=== PATIENT | female | born 2005 | race Caucasian/White ===

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

== ENCOUNTER 2024-03-09 07:48 | Outpatient (RCR) | payer OTHER, SELFPAY ==
[2024-03-09 12:15] VITALS: BP 126/70; PULSE 114; TEMP 36.6; O2SAT 99
[2024-03-09] MEDS: RHO(D) IMMUNE GLOBULIN 1,500 UNIT SYRINGE 1500 UNIT IM (12:23)
--- NOTE | 2024-03-09 13:15 | PC.NURSE ---
1215: Pt. to [facility] amb. accompanied by mother. Seated in recliner. VSS. Blood type verified. Pt. given information about rhogam, questions addressed. Medicated with Rhophylac to right deltoid, see documentation. No bleeding to site, bandaid applied prophylctically. Pt. tolerated without c/o discomfort. 1240: Pt. without s&s adverse reaction. D/c'd amb.to home with mom.
== END 2024-03-09 14:30 | disposition home or self-care (01) ==
LOC: INF 07:48
PROVIDERS: Visit Provider Midwife
DX: O26.893 Other specified pregnancy related conditions, third trimester (principal); Z67.91 Unspecified blood type, Rh negative; Z3A.00 Weeks of gestation of pregnancy not specified
CPT/HCPCS: 36415; 86850; 86900; 86901; 96372; J2790

== ENCOUNTER 2024-05-01 14:05 | Observation (INO) | payer OTHER, SELFPAY ==
[2024-05-01 14:16] VITALS: BP 109/60; PULSE 81
== END 2024-05-01 14:55 | disposition home or self-care (01) ==
PROVIDERS: Admitting Provider Obstetrics & Gynecology; Visit Provider Obstetrics & Gynecology
DX: O36.8190 Decreased fetal movements, unspecified trimester, not applicable or unspecified (principal); Z3A.00 Weeks of gestation of pregnancy not specified
CPT/HCPCS: 59025; G0378; G0379

== ENCOUNTER 2024-05-06 05:52 | Inpatient (IN) | payer OTHER, SELFPAY ==
[2024-05-06] VITALS (52 sets, daily range): BP systolic 91–136; BP diastolic 50–103; PULSE 72–144; TEMP 36.1–36.6
--- OUTSIDE RECORDS SUMMARY | 2024-05-06 05:55 | XMS_ITS | CCD ---
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 Name Role Phone GUIDO ., HELIO Admitting Unavailable GUIDO ., HELIO Attending Unavailable [facility] Primary [facility] [place] Unava ilable MICHELLE ., DESTINEY LEAL Consulting Unavailabl e MAYTE ., TAE Consulting Unavailable GUIDO ., HELIO Admitting Unavailable GUIDO ., HELIO Attending Unavailable Unavailable Primary Care Provider Unavailabl e SERVICES, [facility] Unava ilable KESHA ERNST Attending Unavailable SERVICES, [facility] Unava ilable DARYL CERON Attending Unavaila ble SERVICES, [facility] Unava ilable MARIANA MARIE Attending Unavailable MARIANA MARIE Attending Unavailable MARIANA MARIE Referring Unavailable SERVICES, [facility] Unava ilable SERVICES, [facility] Unava ilable Medications Current Medications Medication Drug Class(es) Dates Sig (Normalized) Sig (Original) ondansetron 8 mg oral tablet (2 sources) Serotonin-3 Receptor Antagonist Start: 11-08-2023 End: 12-08-2023 take 1 tablet by mouth every eight hours for nausea ondansetron (Zofran) 8 MG tablet Indications: Nausea and vomiting, unspecified vomiting type Take 1 tablet (8 mg) by mouth every 8 (eight) hours if needed for nausea 20 tablet 1 11/08/2023 12/08/2023 Active Vit-Fe Fumarate-FA ( Plus/Iron) 27-1 MG tablet (2 sources) Start: 10-15-2023 End: 10-14-2024 take 1 tablet by mouth in the morning Vit-Fe Fumarate-FA ( Plus/Iron) 27-1 MG tablet Indications: Amenorrhea Take 1 tablet by mouth in the morning. 30 tablet 0 10/15/2023 10/14/2024 Active Problems Active Problems Problem Classification Problem Date Documented Da te Episodic/Chronic Abdominal pain (4 sources) Pelvic and perineal pain; Translations: [Flank pain] Onset: 01-24-2023 Episodic Genitourinary symptoms and ill-defined conditions (1 source) Frequency of micturition; Translations: [Frequency of micturition] Onset: 10-03-2023 Episodic Inflammatory diseases of female pelvic organs (1 source) Acute vulvitis; Translations: [ACUTE VULVITIS] Onset: 01-28-2023 Episodic Nausea and vomiting (2 sources) Nausea with vomiting, unspecified; Translations: [Vomiting] Onset: 10-03-2023 Episodic Open wounds of extremities (2 sources) Laceration without foreign body of right thumb without damage to nail, initial encounter; Translations: [Laceration of finger] Onset: 11-13-2023 Episodic Other aftercare (1 source) Encounter for removal of sutures; Translations: [Encounter for removal of sutures] Onset: 11-22-2023 Episodic Other and delivery including normal (4 sources) Normal ; Translations: [Encounter for supervision of other normal , second trimester] 11-12-2023 Episodic Residual codes; unclassified (1 source) Less than 8 weeks gestation of ; Translations: [Less than 8 weeks gestation of ] Onset: 10-03-2023 Episodic Unclassified (2 sources) OB Reminders Onset: 11-07-2023 11-07-2023 Unclassified (1 source) Suture / Staple Removal Onset: 11-22-2023 Unclassified (1 source) Urinary Frequency, Vomitting - Possible Onset: 10-03-2023 Urinary tract infections (1 source) Urinary tract infection, site not specified; Translations: [Urinary tract infection, site not specified] Onset: 10-03-2023 Episodic Past or Other Problems Problem Classification Problem Date Documented Da te Episodic/Chronic Fever of unknown origin (4 sources) Fever, unspecified; Translations: [FEVER UNSPECIFIED] Onset: 05-01-2022 Episodic Results Test Name Value Interpretation Reference Range Facil ity XR HAND RT MIN 3 VWSon 11-13 XR HAND RT MIN 3 VWS XR HAND RT MIN 3 VWS Clinical history: Possible foreign body. Right hand: 11/13/2023 COMPARISON: None FINDINGS: 3 views the hand were obtained. No focal osseous abnormalities evident. There is no radiopaque foreign body. Bone density is normal. IMPRESSION: No foreign body evident radiographically. Finalized by Jose Dougherty MD on 11/13/2023 9:54 AM Normal [facility] SARS/FLU A+B/RSV by NAAT/Mol ecularon 10-04-2023 SARS/FLU A+B/RSV by NAAT/Molecular FLU A PCR Negative (qualifier value) FLU B PCR Negative (qualifier value) RSV by PCR Negative (qualifier value) SARS CoV 2 Detected (qualifier value) NOTE The Xpert Xpress SARS-CoV-2/Flu/RSV Plus test is a rapid, multiplexed real-time RT-PCR test intended for the simultaneous qualitative detection and differentiation of SARS-CoV-2, influenza A, influenza B and respiratory syncytial virus (RSV) viral RNA from individuals suspected of respiratory viral infection consistent with COVID-19 by their healthcare provider. This test has not been validated in asymptomatic patients. The Xpert Xpress SARS-CoV-2 test is intended for use by qualified and trained operators who are performing tests using either [employer] or [employer] systems and is limited to laboratories that meet the CLIA requirements to perform high and moderate complexity tests. The Xpert Xpress SARS-CoV-2/Flu/RSV Plus is only for use under the Food and Drug Administration's Emergency Use Authorization. Results are for the simultaneous detection and differentiation of SARS-CoV-2, influenza A, influenza B and RSV nucleic acids in clinical specimens. SARS-CoV-2, influenza A, influenza B and RSV RNA identified by this test are generally detectable in upper respiratory samples during the acute phase of infection. Positive results are indicative of the presence of the identified virus, but do not rule out bacterial infection or co-infection with other pathogens not detected by this test. Clinical correlation with patient history and other diagnostic information is necessary to determine patient infection status. The agent detected may not be the definite cause of disease. Negative results do not preclude SARS-CoV-2, influenza A, influenza B and RSV infection and should not be used as the sole basis for treatment or other patient management decisions. Negative results must be combined with clinical observations, patient history and epidemiological information. An Invalid result may occur with specimen-associated inhibition unable to be resolved with specimen repeat. Fact Sheet for Healthcare Providers: https://www.fda.gov/m edia/347351/download Fact Sheet for Patients: https://www.fda.gov/m edia/838313/download [facility] Comment on above: Performed By: #### C OVFLR #### [facility] ([id number]) [address] [place] [address] CHLAMYDIA/GC PCR, Uon 2022 CHLAMYDIA/GC PCR, U SPECIMEN SOURCE CLEAN CATCH MIDSTREAM URINE CHLAMYDIA DNA(PCR) Negative (qualifier value) Chlamydia trachomatis not detected by nucleic acid amplification. This does not exclude the possibility of infection because results are dependent on adequate specimen collection. GONORRHOEAE DNA(PCR) Negative (qualifier value) Neisseria gonorrhoeae not detected by nucleic acid amplification. This does not exclude the possibility of infection because results are dependent on adequate specimen collection. Normal [facility] Comment on above: Performed By: #### C #### [facility] ([id number]) [address] [place] [address] [facility] ([id number]) [address] [place] [address], [address] [place] [address] URINE CULTUREon 10-03-2023 Bacteria identified Cx Nom (U) CULTURE RESULTS 10-50,000 ORGANISMS/mL NORMAL UROGENITAL SANTOS Normal [facility] Comment on above: Performed By: #### 6 30-4 #### [facility] ([id number]) [address] [place] [address], [address] [place] [address] URN MACROSCOPIC NURon 2022 BILIRUBIN FARHAD Small Abnormal NEG [facility] Comment on above: Performed By: #### N UM #### [facility] ([id number]) [address] [place] [address] BLOOD/HGB FARHAD Negative Normal NEG [facility] Comment on above: Performed By: #### N UM #### [facility] ([id number]) [address] [place] [address] GLUCOSE FARHAD Negative Normal NEG [facility] Comment on above: Performed By: #### N UM #### [facility] ([id number]) [address] [place] [address] KETONES FARHAD >=160 Abnormal NEG [facility] Comment on above: Performed By: #### N UM #### [facility] ([id number]) [address] [place] [address] LEUKOCYTE ESTERASE FARHAD Negative Normal NEG [facility] Comment on above: Performed By: #### N UM #### [facility] ([id number]) [address] [place] [address] NITRITE FARHAD Negative Normal NEG [facility] Comment on above: Performed By: #### N UM #### [facility] ([id number]) [address] [place] [address] PH FARHAD 8.5 Normal 5.0-8.5 [facility] Comment on above: Performed By: #### N UM #### [facility] ([id number]) [address] [place] [address] PROTEIN FARHAD >=300 Abnormal NEG [facility] Comment on above: Performed By: #### N UM #### [facility] ([id number]) [address] [place] [address] SPECIFIC GRAVITY FARHAD 1.020 Normal 1.003-1.035 [facility] Comment on above: Performed By: #### N UM #### [facility] ([id number]) [address] [place] [address]52 UROBILINOGEN FARHAD 1.0 eu/dL Normal <1.1 [facility] Comment on above: Performed By: #### N UM #### [facility] ([id number]) [address] [place], [place] [address], [place] [address] Vital Signs Date Time Vital Sign Value Performing Clinician Dang del rio 11-12-2023 11:43-0500 Body mass index (BMI) [Ratio] 22.4 kg/m2 Jessica Sloan CNM Work Phone: [facility] 11-12-2023 11:43-0500 Body weight 64.86 kg Jessica Monzono CNM Work Phone: [facility] Healthcare 11-12-2023 11:43-0500 Diastolic blood pressure 70 mm[Hg] Jessica Monzono CNM Work Phone: [facility] 11-12-2023 11:43-0500 Systolic blood pressure 110 mm[Hg] Jessica Monzono CNM Work Phone: [facility] Healthcare Encounters Encounter Date Encounter Type Care Provider Facility Start: 11-22-2023 End: 11-22-2023 Emergency department patient visit [facility] Start: 11-13-2023 End: 11-14-2023 Emergency department patient visit MARIANA Cummings [facility] Start: 11-12-2023 End: 11-12-2023 Office outpatient visit 15 minutes Jessica Sloan CNM Work Phone: [facility] Comment on above: Encounter for superv ision of other normal , second trimester (Primary Dx); Supervision of normal first teen in second trimester Start: 10-04-2023 End: 10-04-2023 Emergency department patient visit [facility] Start: 10-03-2023 End: 10-03-2023 Emergency department patient visit [facility] Start: 01-24-2023 End: 01-24-2023 ambulatory HELIO LORA . Facility:[facility] Start: 05-01-2022 End: 05-01-2022 ambulatory T[facility] . Facility: Plan of Treatment Date Care Activity Detail Author Start: 12-10-2023 End: 12-10-2023 Patient encounter procedure 12/10/2023 11:00 AM EST Routine [facility] [address] [place] [id number] Jessica Sloan Emiliano, CNM [address], [place] [id number] [facility] Payers Date Payer Category Payer Medicaid [facility] MEDICAID [place] [id number] 2023-Present [address] [place] [address] [id number] 2004 Unknown [id number] 2004 Unknown [id number] 2004 Unknown [id number] 2004 Unknown [id number] 2004 Unknown [id number] 1969 Unknown [id number] 1969 Unknown [id number] 1959 Unknown [id number] Social History Date Type Detail Facility [facility]: [facility] Start: 10-15-2023 Tobacco use and exposure Smokeless t obacco non-user [facility] Start: 10-15-2023 Alcohol intake Lifetime non-d yony (finding) [facility] Start: 10-15-2023 History of Social function [facility] Start: 10-15-2023 Tobacco use panel [facility] Start: 08-20-2023 [facility] Start: 2004 Sex Assigned At Female [facility] Start: 10-08-2023 Gender identity Identifies as female gender (finding) [facility] Goals Date Patient Goal Desired Activity /State Personal health goal History of Present illness Narrative 11-12-2023 Jessica Sloan CNM - 11/12/2023 11:30 AM EST Note Date & Type Note Facility 11-12-2023 History of Presen t illness Narrative Subjective No chief complaint on file. Shayy Acevedo is a 18 y.o. at 14w0d with a working estimated date of delivery of 05/12/2024, by Ultrasound who presents for a routine visit. She denies vaginal bleeding, leakage of fluid, decreased movements, or contractions. Her is complicated by: teen , nausea and vomiting in The following portions of the chart were reviewed this encounter and updated as appropriate: Objective Physical Exam weight: 143 lb Expected Total Weight Gain: 25 lb-35 lb Pregravid BMI: 22.71 Urine glucose-negative,protein-negative Labs- reviewed Imaging Assessment/Plan Diagnoses and all orders for this visit: Encounter for supervision of other normal , second trimester Supervision of normal first teen in second trimester Continue vitamin. Labs reviewed. Rhogam GTT . Follow up in 2 weeks for a routine visit. documented in this encounter [facility] Evaluation note Note Date & Type Note Facility Evaluation note Diagnosis Encounter for supervision of other normal , second trimester- Primary Supervision of normal first teen in second trimester documented in this encounter [facility] Summary Purpose Family History No Family History Records FoundNo Family History Records Found Advance Directives No Advanced Directives Records FoundNo Advanced Directives Records Found Additional Source Comments INFORMATION SOURCE (unrecogn ized section and content) DATE CREATED AUTHOR 01/28/2023 [employer] DATE CREATED AUTHOR 'S ORGANIZ ATRENATO 11/24/2023 [facility] FOR RECORDS PERTAINING TO PATIENTS WHO ARE OR HAVE BEEN ENROLLED IN A CHEMICAL DEPENDENCY/SUBSTANCEABUSE PROGRAM, SOME INFORMATION MAY BE OMITTED. This clinical summary was aggregated from multiple sources. Caution should be exercised in using it in the provision of clinical care. This summary normalizes information from multiple sources, and as a consequence, information in this document may materially change the coding, format and clinical context of patient data. In addition, data may be omitted in some cases. CLINICAL DECISIONS SHOULD BE BASED ON THE PRIMARY CLINICAL RECORDS. [facility] [employer] [facility]. provides no warranty or guarantee of the accuracy or completeness of information in this document.
[2024-05-06 06:30] LABS: Hematocrit 31.2 % (36.0-48.0); Hemoglobin 10.7 g/dL (12.0-16.0); Mean Corpuscular HGB Conc 34.3 g/dL (29.9-35.2); Mean Corpuscular Hemoglobin 31.2 pg (26.7-34.0); Mean Platelet Volume 10.2 fL (9.5-13.5); Platelet Count 216 10^3/uL (150-450); Red Blood Count 3.43 10^6/uL (4.20-5.40); Red Cell Distribution Width 12.8 % (11.0-15.0); White Blood Count 9.7 10^3/uL (4.0-11.0)
[2024-05-06] MEDS: LACTATED RINGER'S SOLUTION 1,000 ML 125 ML IV ×3 (06:30→18:38)
[2024-05-06 06:41] LABS: Amphetamine Screen Urine NEGATIVE (NEGATIVE); Barbiturates Screen Urine NEGATIVE (NEGATIVE); Benzodiazepines Screen Urine NEGATIVE (NEGATIVE); Buprenorphine Screen Urine NEGATIVE (NEGATIVE); Cannabinoid Screen Urine POSITIVE (NEGATIVE); Cocaine Screen Urine NEGATIVE (NEGATIVE); Methadone Screen Urine NEGATIVE (NEGATIVE); Methamphetamines Screen Urine NEGATIVE (NEGATIVE); Opiate Screen Urine NEGATIVE (NEGATIVE); Oxycodone Screen Urine NEGATIVE (NEGATIVE); Phencyclidine Screen Urine NEGATIVE (NEGATIVE); Tricyclic Antidepressant Urine NEGATIVE (NEGATIVE)
--- NOTE | 2024-05-06 07:14 | PC.NURSE ---
This RN has reviewed all charting by Jae Hernandez RN and agrees with documentation.
[2024-05-06] MEDS: OXYTOCIN/0.9 % SODIUM CHLORIDE 10 UNITS/500 ML PLAST..BAG 6 UNIT IV (07:59)
[2024-05-06] MEDS: NALBUPHINE HCL 10 MG/ML AMPULE IV (14:14)
[2024-05-06] MEDS: ROPIVACAINE HCL/PF 400 MG/200 ML PREMIX 6 MG EPIDURAL (14:43)
--- NOTE | 2024-05-06 14:46 | PM.OBHP ---
OB - H&P: HPI History of Present Illness Chief complaint: INDUCTION : 1 Para: 0 Gestational age based on last menstrual period: 39.1 History of Present Dating criteria: based on 1st trimester US only care: good care Ultrasounds: normal 1st trimester US and normal mid trimester US complications: gestational diabetes (diet controlled ) Labs Blood type: 0 (-) negative Rubella: immune RPR/VDLR: nonreactive GBS status: negative HBsAG: negative Review of Systems ROS Status of ROS: 10 or more systems reviewed and unremarkable except as noted in history and below PFSH PFSH Social History Smoking status: Never smoker Meds Home Medications and Allergies Home Medications ?Medication ?Instructions ?Recorded ?Confirmed ?Type No Known Home Medications 08/13/23 05/06/24 History Allergies Allergy/AdvReac Type Severity Reaction Status Date / Time No Known Drug Allergies Allergy Verified 08/13/23 11:31 Exam Constitutional Vital Signs, click to edit/add: Last Vital Signs Temp 97.1 F L 05/06/24 14:46 Pulse 86 05/06/24 14:43 Resp 16 05/06/24 06:50 BP 114/67 05/06/24 14:43 Common normals: no apparent distress and oriented x3 General appearance: cooperative and comfortable Orientation/consciousness: Yes awake, Yes oriented to person, Yes oriented to place and Yes oriented to time HENMT Common normals: normocephalic Eye Common normals: EOMs intact bilaterally General eye: normal appearance of both eyes Neck & C-Spine Common normals: no lymphadenopathy Lymph Lymphatic: no lymphadenopathy noted Respiratory Common normals: normal respiratory effort and no use of accessory muscles Effort & inspection: able to speak in complete sentences Auscultation: clear to auscultation bilaterally Cardio Common normals: regular rate and regular rhythm Rate: regular rate Rhythm: regular rhythm GI Common normals: Normal to inspection, nondistended, normoactive bowel sounds present Auscultation: normoactive bowel sounds Palpation: soft Common normals: no CVA tenderness Back & Pelvis Common normals: no CVA tenderness Extremity Common normals: normal to inspection Neuro Common normals: oriented x3 Sensorium/orientation: awake, alert, oriented to person, oriented to place and oriented to time Psych Attitude: calm Thought process: normal thought process Results Labs Labs: Short CBC 07/31/24 Range/Units 06:15 WBC 9.7 (4.0-11.0) 10^3/uL Hgb 10.7 L (12.0-16.0) g/dL Hct 31.2 L (36.0-48.0) % Plt Count 216 (150-450) 10^3/uL OB - A/P Additional Plan Induction method: per pitocin protocol Plan: expectant management
[2024-05-06] MEDS: ONDANSETRON PF 4 MG/2 ML VIAL IV (15:08)
[2024-05-06] MEDS: LIDOCAINE VISCOUS 2% 15 ML SOLUTION 5 ML TOPICAL (21:00)
[2024-05-06] MEDS: OXYTOCIN/0.9 % SODIUM CHLORIDE 20 UNITS/1,000 ML PLAST..BAG 125 UNIT IV (21:01)
--- NOTE | 2024-05-06 21:08 | PM.OBPRCVD ---
Procedure Intrapartal events: None Induction method: per pitocin protocol Delivery augmentation: rupture of membranes Delivery monitor: external FHT and external uterine Route of delivery: Episiotomy Description: none L&D Laceration Description: periurethral - 2nd degree (yudelka clitoral laceration- Dr Wiley repaired ) Delivery repair: Vicryl Estimated blood loss (mL): 350 Anesthesia type: Epidural Disposition: no change Infant Delivery date: 05/06/24 Gender: female presentation: vertex cord description: 3 Vessels and Loose (x1 around chest, reduced with delivery ) heart rate - 1 minute: 100 bpm or Greater respiratory effort - 1 minute: Spontaneous/Strong Cry muscle tone - 1 minute: Active Movement reflex response - 1 minute: Prompt Response color - 1 minute: Bluish Hands or Feet total score - 1 minute: 9 heart rate - 5 minute: 100 bpm or Greater respiratory effort - 5 minute: Spontaneous/Strong Cry muscle tone - 5 minute: Active Movement reflex response - 5 minute: Prompt Response color - 5 minute: Bluish Hands or Feet total score - 5 minute: 9
[2024-05-06] MEDS: BENZOCAINE/MENTHOL 85 GRAM SPRAY BOTTLE 1 APPLIC TOPICAL (22:35)
[2024-05-06] MEDS: GLYCERIN/WITCH HAZEL PADS 1 PAD TOPICAL (22:35)
[2024-05-06] MEDS: IBUPROFEN 400 MG TABLET 800 MG PO (22:36)
[2024-05-07] VITALS (10 sets, daily range): BP systolic 106–123; BP diastolic 6–72; PULSE 70–93; TEMP 36.1–37.2
[2024-05-07] MEDS: IBUPROFEN 400 MG TABLET 800 MG PO ×2 (08:54→16:29)
[2024-05-07] MEDS: DOCUSATE SODIUM 100 MG CAPSULE PO (08:55)
--- NOTE | 2024-05-07 11:35 | SWNOTE1 ---
SW consulted due to positive THC on admission. Pt's mother was in room during assessment. Pt lives at home with her mother who is a good support for her. This is pt's first baby. She is determining paternity for baby at this time. She does have everything she needs at home for baby, just needs a breast pump. She is going to use a bassinet right now and the crib is in storage. Breast pump to be brought in to her later today. She voiced breast feeding is going well. Pt has good support at home with her family. She is going to contact [facility] once she is home. SW and pt spoke about signs of post depression and reaching out to support for help. SW did address the positive marijuana drug screen. Pt did admit to smoking marijuana here and there throughout due to discomfort, nausea, and to help her sleep. Pt does not plan on using once she returns home. Pt does not have a medical marijuana card. JR advised pt that SW is mandated medical scientist and will have to make a report to [facility] CPS. Pt and pt's mother voiced understanding and no further questions. HIPAA form sent to Maria Ines. JR called and made report to [facility] CPS.
--- NOTE | 2024-05-07 12:02 | PM.OBPN ---
OB - PN: Subj Subjective Patient comments: no complaints, pain well controlled and flatus present status: doing well [place] feeding status: exclusively Exam Narrative Exam Narrative: VOICING NO COMPLAINTS Constitutional Vital Signs, click to edit/add: Last Vital Signs Temp 97.9 F 05/07/24 08:50 Pulse 93 H 05/07/24 08:47 Resp 16 05/07/24 08:50 BP 111/68 05/07/24 08:47 O2 Del Method Room Air 05/07/24 08:50 Documenting provider has reviewed patient's vital signs: yes Common normals: no apparent distress, average body habitus, oriented x3, no limitations, healthy appearing and alert HENMT Common normals: normocephalic and head/scalp atraumatic Eye Pupil: PERRL and accommodation reflex normal Neck & C-Spine Common normals: full ROM and supple Chest Common normals: inspection of chest normal Respiratory Common normals: normal respiratory effort Cardio Common normals: regular rate and regular rhythm GI Common normals: Normal to inspection, nondistended, normoactive bowel sounds present, soft to palpation and non-tender Common normals: no CVA tenderness Back & Pelvis Common normals: no thoracic nor lumbar tenderness Extremity Common normals: normal to inspection, full ROM and no calf tenderness Neuro Common normals: oriented x3, CN's II-XII intact bilaterally, moves all extremities, no focal motor deficits and no sensory deficits noted Motor exam: strength 5/5 throughout Psych Common normals: mental status grossly normal, thought process normal, cooperative and affect normal OB - PN: A/P Assessment and Plan (1) (spontaneous vaginal delivery): Assessment and Plan: PPD ONE. CLINICAL EXAM NONFOCAL. PERINEUM INTACT. GOOD PAIN MANAGEMENT. BREAST FEEDING WELL. AMBULATING AND VOIDING NORMALLY. Plan ROUTINE CARE Time Spent with Patient Time: Total time spent is greater than 50% in coordination of care (as documented) at patient's floor/unit and/or counseling patient: Total time spent with greater than 50% in coordination of care (as documented) at patient's floor/unit and/or counseling patient: less than 15 minutes
[2024-05-07] MEDS: RHO(D) IMMUNE GLOBULIN 1,500 UNIT SYRINGE 1500 UNIT IM (18:08)
[2024-05-07 18:18] LABS: Basophils Absolute Auto 0.1 10^3/uL (0.0-0.1); Basophils Percent Auto 0.4 % (0.2-2.0); Eosinophils Absolute Auto 0.1 10^3/uL (0.0-0.7); Eosinophils Percent Auto 0.7 % (0.9-7.0); Hematocrit 28.4 % (36.0-48.0); Hemoglobin 9.6 g/dL (12.0-16.0); Immature Granulocytes Abs Auto 0.16 10^3/uL (0.00-0.03); Lymphocytes Percent Auto 24.7 % (20.5-60.0); Mean Corpuscular HGB Conc 33.8 g/dL (29.9-35.2); Mean Corpuscular Hemoglobin 31.1 pg (26.7-34.0); Mean Corpuscular Volume 91.9 fL (81.0-99.0); Monocytes Absolute Auto 0.9 10^3/uL (0.3-0.8); Monocytes Percent Auto 5.2 % (1.7-12.0); Neutrophils Absolute Auto 11.1 10^3/uL (1.4-6.5); Platelet Count 236 10^3/uL (150-450); Red Blood Count 3.09 10^6/uL (4.20-5.40); White Blood Count 16.3 10^3/uL (4.0-11.0)
--- NOTE | 2024-05-07 19:07 | W.PC.ACHO ---
Registration Status: ADM IN Primary Language: Chinese Preferred Language: Chinese Report given on tear, pain control, education needs & . Active Medications Generic Name Dose Route Start Last Admin Trade Name Freq PRN Reason Stop Dose Admin Acetaminophen 1,000 mg 05/06/24 08:06 Acetaminophen 500 Mg Tablet PO Q6H PRN Pain Acetaminophen 650 mg 05/06/24 21:32 Acetaminophen 325 Mg Tablet PO Q6H PRN Mild Pain Al Hydroxide/Mg Hydroxide 2,400 mg 05/06/24 21:32 Magnesium Hydroxide 2,400 Mg/10 Ml Oral.Susp PO Q6H PRN Dyspepsia Benzocaine/Menthol 1 applic 05/06/24 21:32 05/06/24 22:35 Benzocaine/Menthol 85 Gram Pinson Bottle TOPICAL 1 applic Q2H PRN Administration Pain Calcium Carbonate 500 mg 05/06/24 08:06 Calcium Carbonate 500 Mg (200mg Elemental) Tab Chew PO TID PRN Heartburn Carboprost Tromethamine 250 mcg 05/06/24 05:54 Carboprost Tromethamine 250 Mcg/Ml 1 Ml Vial IM 05/07/24 21:00 Q15M PRN Bleeding Diphtheria/Pertussis/Tetanus Vacc 0.5 ml 05/08/24 09:00 Adacel Diph,Pertuss(Acell),Tet Vac/Pf 0.5 Ml Adult Syringe IM 05/08/24 09:01 .ONCE ONE Docusate Sodium 100 mg 05/07/24 09:00 05/07/24 08:55 Docusate Sodium 100 Mg Capsule PO 100 mg BID YASMEEN Administration Tranexamic Acid 1,000 mg/ 110 mls @ 440 mls/hr 05/06/24 05:54 Sodium Chloride IV 05/07/24 21:00 ONCE PRN Uterine Bleeding Lactated Ringer's 1,000 mls @ 125 mls/hr 05/06/24 06:00 05/06/24 18:38 Lactated Ringers IV 125 mls/hr .Q8H YASMEEN Administration Ibuprofen 800 mg 05/06/24 21:45 05/07/24 16:29 Ibuprofen 400 Mg Tablet PO 800 mg Q8H YASMEEN Administration Measles/Mumps/Rubella Vaccine Live 0.5 ml 05/08/24 09:00 Measles,Mumps,Rubella Vacc/Pf 0.5 Ml Vial SQ 05/08/24 09:01 .ONCE ONE Methylergonovine Maleate 0.2 mg 05/06/24 05:54 Methylergonovine Maleate 0.2 Mg/Ml Ampule IM 05/07/24 21:00 ONCE PRN Uterine Contractility/Contract Methylergonovine Maleate 0.2 mg 05/06/24 05:54 Methylergonovine Maleate 0.2 Mg Tablet PO 05/07/24 21:00 Q4H PRN Uterine Contractility/Contract Misoprostol 600 mcg 05/06/24 05:54 Misoprostol 100 Mcg Tablet PO 05/07/24 21:00 ONCE PRN Uterine Bleeding Misoprostol 800 mcg 05/06/24 05:54 Misoprostol 100 Mcg Tablet SL 05/07/24 21:00 ONCE PRN Uterine Bleeding Misoprostol 1,000 mcg 05/06/24 05:54 Misoprostol [address] 05/07/24 21:00 ONCE PRN Uterine Bleeding Ondansetron HCl 4 mg 05/06/24 05:54 05/06/24 15:08 Ondansetron Pf 4 Mg/2 Ml Vial IV 4 mg Q6H PRN Administration Nausea And Vomiting Ondansetron HCl 4 mg 05/06/24 05:54 Ondansetron 4 Mg Rapdis Tablet SL Q6H PRN Nausea And Vomiting Oxytocin 10 unit 05/06/24 05:54 Oxytocin 10 Unit/Ml Vial IM 05/07/24 21:00 ONCE PRN Bleeding Senna 17.2 mg 05/06/24 20:00 Sennosides 8.6 Mg Tablet PO QHS PRN Constipation Simethicone 80 mg 05/06/24 21:32 Simethicone 80 Mg Tab.Chew PO QID PRN Abdominal Distention Temazepam 15 mg 05/06/24 21:32 Temazepam 15 Mg Capsule PO QHS PRN Sleep Witch She/Glycerin 1 pad 05/06/24 21:32 05/06/24 22:35 Glycerin/Witch She Pads TOPICAL 1 pad Q2H PRN Administration Pain Diet Category Date Time Status Regular Consistency Diet Diet 05/06/24 21:32 Active Respiratory Oxygen Delivery Method Room Air Oxygen Delivery Method Room Air Oxygen Delivery Method Room Air Oxygen Delivery Method Room Air Oxygen Delivery Method Room Air Cardiology Heart Sounds Strong,Regular Heart Sounds Strong,Regular Heart Sounds Strong,Regular Bowels Bowel Pattern No Bowel Movement Bowel Pattern No Bowel Movement Renal Bladder Pattern Continent Bladder Pattern Continent Bladder Pattern Continent Bladder Pattern Continent
[2024-05-08] MEDS: IBUPROFEN 400 MG TABLET 800 MG PO ×2 (03:36→12:01)
[2024-05-08] MEDS: GLYCERIN/WITCH HAZEL PADS 1 PAD TOPICAL (03:43)
[2024-05-08 08:18] VITALS: BP 110/67; PULSE 75
[2024-05-08] MEDS: DOCUSATE SODIUM 100 MG CAPSULE PO (08:19)
[2024-05-08 08:33] VITALS: BP 110/67; PULSE 75; TEMP 36.8
--- NOTE | 2024-05-08 12:11 | P.DS_ITS ---
DS: Providers Provider Date of admission: 05/06/24 05:52 Primary care physician: Non-Staff Physician, Admitting clinician: JONAH BANSAL Consults: 05/06/24 Consult to Anesthesiology Routine Consulting Provider: Carter Donovan Reason for consultation: Epidural Consult to Mica Plate Layer Hand Routine Reason for consult:: Other Other reason:: Positive THC Discharging clinician: Magdalena Wiley Anticipated date of discharge: 05/08/24 DS: Diagnosis Discharge Diagnosis (1) (spontaneous vaginal delivery): Assessment and plan: delivered without complication Plan discharge home, discharge instructions given with stated understanding OB - DS: Summary Hospital Course Hospital Course: uncomplicated Time spent discussing smoking cessation with patient: 3 to 10 minutes Peripartum Data - Vaginal Delivery Laceration description: perineal - 2nd degree (periclitoral repair without involvement of clitoris) Complications complications: none Delivery method: spontaneous vaginal delivery Gender: female Discharge plan: home Status at Discharge Cognitive/behavioral status at discharge: wnl Functional status at discharge: independent ambulation Time Spent with Patient Time attestation: Total time spent providing and/or coordinating discharge services: Time spent: less than 30 minutes Exam Narrative Exam Narrative: voicing no complaints Constitutional Vital Signs, click to edit/add: Last Vital Signs Temp 98.2 F 05/08/24 08:33 Pulse 75 05/08/24 08:33 Resp 16 05/08/24 08:33 BP 110/67 05/08/24 08:33 O2 Del Method Room Air 05/08/24 08:33 Documenting provider has reviewed patient's vital signs: yes Common normals: no apparent distress, oriented x3, no limitations, healthy appearing, alert and well nourished [facility] Common normals: normocephalic and head/scalp atraumatic Eye Pupil: PERRL and accommodation reflex normal Neck & C-Spine Common normals: full ROM and supple Respiratory Common normals: normal respiratory effort Cardio Common normals: regular rate and regular rhythm GI Common normals: Normal to inspection, nondistended, normoactive bowel sounds present, soft to palpation and non-tender Common normals: no CVA tenderness Back & Pelvis Common normals: no thoracic nor lumbar tenderness Extremity Common normals: normal to inspection, full ROM and no calf tenderness Neuro Common normals: oriented x3, CN's II-XII intact bilaterally, moves all extremities, no focal motor deficits and no sensory deficits noted Psych Common normals: mental status grossly normal, thought process normal, cooperative, affect normal and speech normal DS: Data Data Completed and Pending Labs on day of discharge: Labs from last 24 hours 05/07/24 18:12 WBC 16.3 H RBC 3.09 L Hgb 9.6 L Hct 28.4 L MCV 91.9 MCH 31.1 MCHC 33.8 RDW 13.0 Plt Count 236 MPV 10.0 Neut % (Auto) 68.0 Lymph % (Auto) 24.7 [place] % (Auto) 5.2 Eos % (Auto) 0.7 L Baso % (Auto) 0.4 Neut # (Auto) 11.1 H Lymph # (Auto) 4.0 H [place] # (Auto) 0.9 H Eos # (Auto) 0.1 Baso # (Auto) 0.1 Abs Immat Gran (auto) 0.16 H Imm/Tot Granulo (auto) 1.0 H Discharge Plan Discharge Disposition: Home, Self-Care Condition: Good Assessment: condition good, afebrile, vss, ready for discharge Health Concerns: none Plan of Treatment: discharge Discharge Medications: No Action No Known Home Medications Activity: resume usual activities as tolerated Activity Detail: walking only exercise for six weeks, no swimming six weeks, may shower, limit car travel 4 weeks, sports bra 29/04 if decides to stop breast feeding, no sex for 6 weeks Diet: regular diet Print Language: Divehi Patient Instructions: Vaginal Delivery (DC) Activity Restrictions/Additional Instructions: aas above Forms: Vaginal Delivery - Discharge, Portal Instructions Follow Up Appointments: six weeks with OB provider Discharge location: home
== END 2024-05-08 13:55 | disposition home or self-care (01) | DRG 560 ==
PROVIDERS: Admitting Provider Midwife; Visit Provider Midwife
DX: O24.420 Gestational diabetes mellitus in childbirth, diet controlled (principal); O70.1 Second degree perineal laceration during delivery; O99.324 Drug use complicating childbirth; F12.90 Cannabis use, unspecified, uncomplicated; Z3A.39 39 weeks gestation of pregnancy; Z37.0 Single live birth; O26.893 Other specified pregnancy related conditions, third trimester; Z67.41 Type O blood, Rh negative; Z86.16 Personal history of COVID-19; Z63.8 Other specified problems related to primary support group
CPT/HCPCS: 36415; 51702; 59050; 59410; 80307; 85025; 85027; 85461; 86850; 86900; 86901; 96365; 96366; 96372; 96375; J2300; J2405; J2790; J2795

== ENCOUNTER 2024-05-13 07:53 | Outpatient (OUT) | payer OTHER, SELFPAY ==
--- OUTSIDE RECORDS SUMMARY | 2024-05-13 07:55 | XMS_ITS | CCD ---
Author Organization [facility] Care Team Providers Care Corduroy Brusher Operator Name Role Phone GUIDO ., HELIO Admitting Unavailable GUIDO ., HELIO Attending Unavailable [facility] Unava ilable MICHELLE ., DESTINEY LEAL Consulting Unavailabl e MAYTE ., TAE Consulting Unavailable GUIDO ., HELIO Admitting Unavailable GUIDO ., HELIO Attending Unavailable Unavailable Primary Care Provider Unavailjose e SERVICES, [facility] Care Unava ilable KESHA ERNST Attending Unavailable SERVICES, [facility] Care Unava ilable DARYL CERON Attending Unavaila ble SERVICES, [facility] Unava ilable MARIANA MARIE Attending Unavailable MARIANA MARIE Attending Unavailable MARIANA MARIE Referring Unavailable SERVICES, [facility] Unava ilable SERVICES, [facility] Unava ilable JONAH SLOAN Referring Unavailable SERVICES, [facility] Unava ilable RENETTA TOBIAS Attending Unavailable JONAH SLOAN Referring Unavailable SERVICES, [facility] Unava ilable BOB Sloan Attending Provider Jonah Sloan Admitting Unavailable Jonah Sloan Attending Unavailable Medications Current Medications Medication Drug Class(es) Dates [...] Active Problems Problem Classification Problem Date Documented Date Episodic/Chronic Abdominal pain (4 sources) Pelvic and [...] other normal , second trimester] 11-12-2023 Episodic Other screening for suspected conditions (not mental disorders or infectious disease) (1 source) Encounter for other specified screening; Translations: [Encounter for other specified screening] Onset: 05-05-2024 Episodic Residual codes; unclassified (1 source) Less than 8 weeks gestation of ; Translations: [Less than 8 weeks gestation of ] Onset: 10-03-2023 Episodic Unclassified (2 sources) OB Reminders Onset: 11-07-2023 11-07-2023 Unclassified (1 source) Suture / Staple Removal Onset: 11-22-2023 Unclassified (1 source) Urinary Frequency, Vomitting - Possible Onset: 10-03-2023 Unclassified (1 source) Maternal care for other (suspected) abnormality and damage, genitourinary anomalies, not applicable or unspecified; Translations: [Maternal care for other (suspected) abnormality and damage, genitourinary anomalies, not applicable or unspecified] Onset: 05-05-2024 Unclassified (1 source) CYST ON PELVIS Onset: 05-05-2024 Urinary tract infections (1 source) Urinary tract [...] Dougherty MD on 11/13/2023 9:54 AM Normal [facility] SARS/FLU A+B/RSV by NAAT/Mol [facility] 10-04-2023 SARS/FLU A+B/RSV by NAAT/Molecular FLU A [...] operators who are performing tests using either [employer] or [employer] systems and is limited to laboratories that [...] repeat. Fact Sheet for Healthcare Providers: https://www.fda.gov/m edia/571223/download Fact Sheet for Patients: https://www.fda.gov/m edia/704627/download [facility] Comment on above: Performed By: #### C OVFLR #### [facility] ([id number]) [address] [place] [id number] CHLAMYDIA/GC PCR, Uon 2022 CHLAMYDIA/GC PCR, U [...] results are dependent on adequate specimen collection. [facility] Comment on above: Performed By: #### C #### [facility] ([id number]) [address] [place] [address] [facility] ([id number]) [address] [place] [address], [address] [place] [address] URINE CULTUREon 10-03-2023 Bacteria identified Cx Nom (U) CULTURE RESULTS 10-50,000 ORGANISMS/mL NORMAL UROGENITAL SANTOS Normal [facility] Comment on above: Performed By: #### 6 30-4 #### [facility] ([id number]) [address] [address], [address] [place] [address] URN MACROSCOPIC NURon 2022 BILIRUBIN FARHAD Small Abnormal NEG [facility] Comment on above: Performed By: #### N UM #### [facility] ([id number]) [address] [place] [address] BLOOD/HGB FARHAD Negative Normal NEG [facility] Comment on above: Performed By: #### N UM #### [facility] ([id number]) [address] [place] [address] GLUCOSE FARHAD Negative Normal NEG [facility] Comment on above: Performed By: #### N UM #### [facility] ([id number]) [address] [place] [address] [place] [address] KETONES FARHAD >=160 Abnormal NEG [facility] Comment on above: Performed By: #### N UM #### [facility] ([id number]) [address] [place] [address] LEUKOCYTE ESTERASE FARHAD Negative Normal NEG [facility] Comment on above: Performed By: #### N UM #### [facility] ([id number]) [address] [place] [address] [place] [address] NITRITE FARHAD Negative Normal NEG [facility] Comment on above: Performed By: #### N UM #### [facility] ([id number]) [address] [place] [address] PH FARHAD 8.5 Normal 5.0-8.5 [facility] Comment on above: Performed By: #### N UM #### [facility] ([id number]) [address] [place] [address] PROTEIN FARHAD >=300 Abnormal NEG [facility] Comment on above: Performed By: #### N UM #### [facility] ([id number]) [address] [place] [address] SPECIFIC GRAVITY FARHAD 1.020 Normal 1.003-1.035 [facility] Comment on above: Performed By: #### N UM #### [facility] ([id number]) [address] [place] [address] UROBILINOGEN FARHAD 1.0 eu/dL Normal <1.1 [facility] Comment on above: Performed By: #### N UM #### [facility] ([id number]) [address] [place] [address] Vital Signs Date Time Vital Sign Value Performing Clinician Faci lity 11-12-2023 11:43-0500 Body mass index (BMI) [Ratio] 22.4 kg/m2 Jonah Sloan [facility] Work Phone: [facility] 11-12-2023 11:43-0500 Body weight 64.86 kg Jonah Sloan [facility] Work Phone: [facility] 11-12-2023 11:43-0500 Diastolic blood pressure 70 mm[Hg] Jonah Sloan [facility] Work Phone: [facility] 11-12-2023 11:43-0500 Systolic blood pressure 110 mm[Hg] Jonah Sloan [facility] Work Phone: [facility] Healthcare Encounters Encounter Date Encounter Type Care Provider Facility Start: 05-06-2024 End: 05-06-2024 ambulatory Jonah Sloan [facility] Work Phone: Start: 05-06-2024 End: 05-06-2024 Departed Referred TRAVEL AGENCY MANAGER Jonah Sloan Work Phone: [facility] Start: 05-05-2024 End: 05-06-2024 ambulatory RENETTA BAEZHID [facility] Start: 11-22-2023 End: 11-22-2023 Emergency department patient visit [facility] Start: 11-13-2023 End: 11-14-2023 Emergency department patient visit MARIANA MARIE [facility] Start: 11-12-2023 End: 11-12-2023 Office outpatient visit 15 minutes Jonah Sloan CNM Work Phone: [facility] Comment on above: Encounter for superv ision of other normal , second trimester (Primary Dx); Supervision of normal first teen in second trimester Start: 10-04-2023 End: 10-04-2023 Emergency department patient visit [facility] Start: 10-03-2023 End: 10-03-2023 Emergency department patient visit [facility] Start: 01-24-2023 End: 01-24-2023 ambulatory HELIO GUIDO . Facility: Start: 05-01-2022 End: 05-01-2022 ambulatory TAE MAYTE . Facility: Plan of Treatment Date Care Activity Detail Author Start: 12-10-2023 End: 12-10-2023 Patient encounter procedure 12/10/2023 11:00 AM EST Routine [facility] [address] [place] [id number] Jonah Sloan CNM [address] [place] [address] [facility] Payers Date Payer Category Payer Self-pay 2023 Medicaid [employer] [place] [employer] [id number] 2023-Present [address] [place] [address] [id number] 2004 Unknown [id number] 2004 Unknown [id number] 2004 Unknown [id number] 2004 Unknown [id number] 2004 Unknown [id number] 2004 Unknown [id number] 2004 Unknown [id number] 1969 Unknown [id number] 1969 Unknown [id number] 1959 Unknown [id number] Social History Date Type Detail Facility Start: 10-15-2023 Tobacco smoking stat [facility] Never smoked tobacco [facility] Start: 10-15-2023 [...] goal History of Present illness Narrative 11-12-2023 Jonah Sloan CNM - 11/12/2023 11:30 AM EST Note Date & Type Note Facility 11-12-2023 History of Presen t illness Narrative Subjective No chief complaint on file. Ángel Lorenzo is a 18 y.o. at 14w0d with [...] trimester documented in this encounter [facility] Evaluation note Note Date & Type Note Facility Evaluation note [facility] Summary Purpose Family History No Family History Records FoundNo Family History Records FoundNo Family History Records FoundNo Family History Records Found Advance Directives No Advanced Directives Records FoundNo Advanced Directives Records FoundNo Advanced Directives Records FoundNo Advanced Directives Records Found Additional Source Comments INFORMATION SOURCE (unrecogn ized section and content) DATE CREATED AUTHOR 01/28/2023 [facility] DATE CREATED AUTHOR AUTHOR'S ORGANIZ ATION 11/24/2023 [facility] DATE CREATED AUTHOR AUTHOR'S ORGANIZ ATION 05/07/2024 [facility] DATE CREATED AUTHOR AUTHOR'S ORGANIZ ATION 05/10/2024 [facility] Care Teams (unrecognized sec tion and content) Team Status: Inactive Member Role Status Dates Jonah Sloan APRN Attending Provider Active Start: May 06, 2024 End: May 06, 2024 Goals (unrecognized section and content) Goals may be documented in a n alternate section FOR RECORDS PERTAINING TO PATIENTS WHO ARE [...] BE BASED ON THE PRIMARY CLINICAL RECORDS. [facility]. provides no warranty or guarantee of the accuracy or completeness of information in this document.
--- NOTE | 2024-05-18 14:21 | PC.NURSE ---
T.C. follow up per this travel writer. Alejo states is doing well and is getting ready for PCP appointment this afternoon. Alejo denies concerns or complaint for self. Minimal discomfort from perineal repair, milk coming in, pt chooses to pump and feed. Pumps every 3 hours and infant being fed every 2 hours. Discussed exclusive pumping schedule and paper handout mailed to Alejo as well. Mom states bleeding is light, no clots. appetite good and physically feels well. Family supportive and is able to rest when needed. Baby reported to had 8 wet diapers and 3 yellow/brown stools in last 24 hours. Taking 2 oz of mom's breast milk via bottle Aware to call for questions or concerns with as needs, reminder of [facility] group as well.
== END 2024-05-13 07:54 | disposition home or self-care (01) ==
LOC: FBCO 07:54
PROVIDERS: Visit Provider Midwife
DX: Z39.2 Encounter for routine postpartum follow-up (principal)